=== PATIENT | male | born 1970 | race Caucasian/White ===

== ENCOUNTER 2022-08-22 09:51 | Day surgery (SDC) | payer BC ==
--- NOTE | 2022-08-22 07:51 | HP ---
DATE OF SURGERY: 08/22/2022 HISTORY OF PRESENT ILLNESS: The patient is a 51-year-old with history of reflux, occasional cough the last three to four months. No prior EGD or colonoscopy. Family history of prostate cancer, negative for colon or esophageal cancer. He denies any bloody stools. PAST MEDICAL HISTORY: Hypothyroidism, hypertension. PAST SURGICAL HISTORY: Thyroidectomy. Right shoulder surgery in the past. MEDICATIONS: Omeprazole, Yohan aspirin, zinc acetate, testosterone, amlodipine, losartan, levothyroxine. ALLERGIES: NKDA. FAMILY HISTORY: Mother with skin cancer. Father with prostate cancer and had myocardial infarction. Negative for esophageal or colon cancer. SOCIAL HISTORY: No smoking or alcohol abuse. REVIEW OF SYSTEMS: Fourteen systems reviewed. No chest pain or palpitations. Other systems negative or noncontributory as above and per preadmission questionnaire. PHYSICAL EXAMINATION: Height 5'10". BMI 37. GENERAL: No acute distress. HEENT: Sclerae nonicteric. EOMI. Oral mucous membranes moist. NECK: No JVD. CHEST: Equal excursion, nonlabored breathing. CVS: Regular rate and rhythm. ABDOMEN: Soft, overweight, nontender. EXTREMITIES: No significant edema. NEURO: Alert, oriented, moving extremities symmetrically. RECTAL: Deferred timed to endoscopy exam. PSYCH: Appropriate mood and affect. SKIN: Dry. IMPRESSION: Increased reflux, needs EGD. He also needs screening colonoscopy. I feel he is a candidate for it. He was shown the risk sheet, explained the procedure in detail. Risk bleeding or infection, risk of bowel injury or perforation, risk of missed or nondiagnosis or incomplete exam possibly requiring barium enema, other studies or procedures. General risk of anesthesia or sedation, risk of bowel prep but not limited to, consent obtained. Otherwise continue medication for his hypertension and for thyroid. Will proceed with outpatient EGD and colonoscopy as an outpatient.
[2022-08-22] MEDS ORDERED: Lactated Ringers 1,000 ML IV SCH (10:30)
[2022-08-22] MEDS ORDERED: Lactated Ringers 1,000 ML IV ONE (10:42)
[2022-08-22] MEDS ORDERED: DIPRIVAN 200 MG/20 ML IV ONE ×3 (12:25→13:01)
[2022-08-22] MEDS ORDERED: Versed 2 MG/2 ML Injection ONE (12:25)
[2022-08-22] MEDS ORDERED: DUONEB 0.5-3 MG/3 ml Neb IH ONE (13:30)
[2022-08-22 14:19] VITALS: PULSE 90; O2SAT 93
[2022-08-22 14:25] VITALS: BP 110/66
--- NOTE | 2022-08-23 12:13 | OP ---
SURGERY DATE/TIME: 08/22/2022 1230 PREOPERATIVE DIAGNOSES: 1) Increased reflux, need for upper endoscopy. 2) Need for screening colonoscopy. POSTOPERATIVE DIAGNOSES: 1) ASA Class II. 2) Minimal gastritis. 3) Tiny right hiatal hernia. 4) Very short segment 1 to 1.5 cm distal esophagitis. 5) Mild diverticulosis. 6) Small polyp versus hyperplastic lesions. 7) Fair bowel prep. PROCEDURES: 1) EGD with cold biopsy of antrum for Helicobacter pylori. 2) Cold biopsy distal esophagus to evaluate for esophagitis. 3) Cold biopsy mid esophagus to evaluate for eosinophilic esophagitis. 4) Colonoscopy to cecum. 5) Hot biopsy small early polyp versus hyperplastic lesion sigmoid colon x4. 6) Hot biopsy polypectomy small early polyps versus hyperplastic lesion rectum x2. SURGEON: Dr. Alverto Conn. ANESTHESIA: MAC. ESTIMATED BLOOD LOSS: Minimal. INDICATIONS: As noted above. Risks and benefits explained in detail and not limited to and consent obtained. DESCRIPTION OF PROCEDURE AND FINDINGS: The patient is taken to the endoscopy room. MAC anesthesia introduced. After official time out and no disagreement with planned procedure, bite block positioned. Video gastroscope easily passed down the esophagus to the patent pylorus to the third portion of the duodenum. Third, second and first portions of duodenum grossly unremarkable. Scope pulled back in the stomach. There was a little bit of mild gastric erythema in conjunction. Cold biopsies taken. This is felt to be minimal early gastritis versus normal variation in the stomach. Cold biopsy is taken to evaluate for Helicobacter pylori. Good hemostasis noted. On retroflex there had been just a slight weakness at the hiatus and noted slight hiatal hernia. The scope straightened. The gastroesophageal junction about 38 cm. There was a short segment of distal esophagitis extending about 1 to 1.5 cm at the most in distal esophagus, two fingerlettes of this did not appear to be Comer's but this seemed to be esophagitis. Cold biopsy taken on both sides. Good hemostasis noted. No signs of any obvious masses or mucosal lesions. Some random cold biopsies were taken in the mid esophagus to evaluate for eosinophilic esophagitis. Good hemostasis noted. The scope is withdrawn. The patient tolerated the procedure well. There were no immediate complications with this part of the procedure. Attention is then turned to colonoscopy. Digital rectal exam did not reveal any rectal masses. Video colonoscope inserted and passed up the slightly tortuous sigmoid, descending, transverse, ascending colon that required positioning on his back and two different staff members applying pressure given his girth. Finally was able to advance the scope. Cecum, appendiceal orifice and valve very well visualized and photo documented in ileocecal valve and appendiceal orifice area. Prep overall was fair with some areas of liquidy, semisolid and solid chunks of stool throughout the colon just slightly limiting the exam for small lesions. Overall fair prep. The scope is carefully withdrawn over the next eleven minutes. He had a few small diverticula scattered throughout the left colon otherwise back in the sigmoid colon he had four small early polyps or hyperplastic lesion removed with hot biopsy forceps with brief bursts of cautery. Good hemostasis noted. There were two small early polyps versus hyperplastic lesion in the rectum removed with hot biopsy polypectomy. Good hemostasis noted. No signs of any large polyps, masses or obstructing lesions. The patient tolerated the procedure well. I went out to the waiting area to discuss the findings with family.
== END 2022-08-22 14:35 | disposition home or self-care (01) ==
LOC: SDC 09:51
PROVIDERS: ATTEND Surgery
DX: Z12.11 Encounter for screening for malignant neoplasm of colon (principal); K21.9 Gastro-esophageal reflux disease without esophagitis; Z80.42 Family history of malignant neoplasm of prostate; Z84.0 Family history of diseases of the skin and subcutaneous tissue; K29.70 Gastritis, unspecified, without bleeding; K44.9 Diaphragmatic hernia without obstruction or gangrene; K20.90 Esophagitis, unspecified without bleeding; K57.30 Diverticulosis of large intestine without perforation or abscess without bleeding; K63.5 Polyp of colon
CPT/HCPCS: 94640; J2250; J2704; A9270-GY